=== PATIENT | female | born 1945 | race Caucasian/White ===

== ENCOUNTER → 2018-03-11 01:21 | Outpatient (CLI) | payer MEDICARE, BC, SELFPAY ==
[2018-03-11 08:35] LABS: ALT 21 U/L (12-78); AST 20 U/L (15-37); Albumin 3.6 g/dL (3.4-5.0); Alkaline Phosphatase 58 U/L (46-116); Anion Gap 10.6 mmol/L (3-11); BUN 26 mg/dL (7-18); Bilirubin, Total 0.3 mg/dL (0.2-1.0); CO2 24.4 mmol/L (21.0-32.0); Calcium 8.6 mg/dL (8.5-10.1); Chloride 102 mmol/L (98-107); Cholesterol 209 mg/dL (50-200); Estimated GFR 48.82 (mL/min/1.73m2); Glucose 111 mg/dL (70-100); HDL Cholesterol 59 mg/dL (40-60); LDL CHOLESTEROL 131 mg/dL (<100); Potassium 4.6 mmol/L (3.5-5.1); Sodium 137 mmol/L (136-145); Total Protein 6.7 g/dL (6.4-8.2); Triglyceride 117 mg/dL (30-150)
== END ==
PROVIDERS: PCP Family Medicine; Visit Provider Family Medicine
DX: I10 Essential (primary) hypertension (principal)
CPT/HCPCS: 36415; 80053; 80061; 83721

== ENCOUNTER → 2018-03-15 01:15 | Outpatient (CLI) | payer MEDICARE, BC, SELFPAY ==
--- NOTE | 2018-03-15 10:24 | DI.REPORT_ITS ---
SYMPTOMS/DIAGNOSIS: SCREENING, Z12.31 MAMMOGRAMS: Mammograms were interpreted according to the usual protocol including computer analysis with CAD system, tomosynthesis and C view imaging. Comparison is with prior mammograms. No masses or microcalcifications are seen. There is nothing to suggest malignancy. IMPRESSION: Negative mammogram. Routine screening is recommended. Category 1, breast density B. MQSA ASSESSMENT OF FINDINGS: Negative. Category 1. Patient will receive a letter notifying them of these results. BI-RADS category B. There are scattered areas of fibroglandular density.
== END ==
PROVIDERS: PCP Family Medicine; Visit Provider Family Medicine
DX: Z12.31 Encounter for screening mammogram for malignant neoplasm of breast (principal)
CPT/HCPCS: 77063; 77067

== ENCOUNTER 2018-06-22 01:24 | Outpatient (CLI) | payer MEDICARE, BC, SELFPAY ==
[2018-06-22 09:14] LABS: Glucose 100 mg/dL (70-100)
[2018-06-22 10:12] LABS: Hemoglobin A1C 5.6 % (4.5-6.2)
== END 2018-06-22 01:44 ==
PROVIDERS: PCP Family Medicine; Visit Provider Family Medicine
DX: R73.9 Hyperglycemia, unspecified (principal)
CPT/HCPCS: 36415; 82947; 83036

== ENCOUNTER 2018-08-12 15:14 | Outpatient (CLI) | payer MEDICARE, BC, SELFPAY ==
[2018-08-12 16:24] LABS: Abs Immature Grans 0.01 k/cumm (0.0-0.09); Absolute Basophil Count 0.04 k/cumm (0.0-0.2); Absolute Eosinophil Count 0.28 k/cumm (0.0-0.7); Absolute Lymphocyte Count 2.37 k/cumm (1.2-3.4); Absolute Monocyte Count 0.68 k/cumm (0.11-0.7); Absolute Neutrophil Count 3.26 k/cumm (1.2-6.7); Basophils % 0.6; Eosinophils % 4.2; HGB 12.7 g/dL (12.0-15.5); Immature Grans % 0.2; Lymphocytes % 35.7; Mean Corp. HGB Concentration 34.3 g/dL (32.0-36.0); Mean Corpuscular Volume 96.1 fL (80-95); Mean Platelet Volume 9.9 fL (8.0-11.0); Monocytes % 10.2; Neutrophils % 49.1; Platelet Count 221 x1000/uL (130-400); RBC 3.85 m/cumm (4.00-5.20); RBC Distribution Width 11.9 % (11.7-14.6); White Blood Cell Count 6.64 k/cumm (4.4-10.8)
[2018-08-12 17:30] LABS: ALT 22 U/L (12-78); AST 23 U/L (15-37); Albumin 3.9 g/dL (3.4-5.0); Alkaline Phosphatase 64 U/L (46-116); BUN 23 mg/dL (7-18); Bilirubin, Total 0.2 mg/dL (0.2-1.0); CREATININE 0.96 mg/dL (0.55-1.02); Calcium 9.2 mg/dL (8.5-10.1); Chloride 100 mmol/L (98-107); Estimated GFR 57.13 (mL/min/1.73m2); Glucose 67 mg/dL (70-100); Potassium 4.1 mmol/L (3.5-5.1); Sodium 137 mmol/L (136-145); Total Protein 7.2 g/dL (6.4-8.2)
== END 2018-08-12 15:34 ==
PROVIDERS: PCP Family Medicine; Visit Provider Nurse Practitioner Family
DX: R69 Illness, unspecified (principal); Z01.818 Encounter for other preprocedural examination
CPT/HCPCS: 36415; 80053; 85025

== ENCOUNTER 2019-04-12 01:12 | Outpatient (CLI) | payer MEDICARE, BC, SELFPAY ==
[2019-04-12 09:17] LABS: HCT 38.5 % (36.0-46.0); HGB 13.1 g/dL (12.0-15.5); Mean Corpuscular Hemoglobin 32.7 pg (27.0-33.0); Mean Platelet Volume 9.9 fL (8.0-11.0); Platelet Count 223 x1000/uL (130-400); RBC 4.01 m/cumm (4.00-5.20); RBC Distribution Width 12.2 % (11.7-14.6); White Blood Cell Count 6.47 k/cumm (4.4-10.8)
[2019-04-12 10:17] LABS: ALT 24 U/L (14-59); AST 22 U/L (15-37); Albumin 3.6 g/dL (3.4-5.0); Alkaline Phosphatase 63 U/L (46-116); Anion Gap 9.7 mmol/L (3-11); BUN 20 mg/dL (7-18); Bilirubin, Total 0.5 mg/dL (0.2-1.0); CO2 24.3 mmol/L (21.0-32.0); CREATININE 1.11 mg/dL (0.55-1.02); Calcium 8.4 mg/dL (8.5-10.1); Chloride 101 mmol/L (98-107); Estimated GFR 48.18 (mL/min/1.73m2); Glucose 156 mg/dL (70-100); Potassium 4.2 mmol/L (3.5-5.1); Sodium 135 mmol/L (136-145); Total Protein 6.9 g/dL (6.4-8.2)
[2019-04-12 15:07] LABS: Hemoglobin A1C 5.8 % (4.5-6.2)
== END 2019-04-12 01:32 ==
PROVIDERS: PCP Family Medicine; Visit Provider Family Medicine
DX: R73.9 Hyperglycemia, unspecified (principal)
CPT/HCPCS: 36415; 80053; 85027; 83036; 84443

== ENCOUNTER 2019-04-20 00:41 | Outpatient (CLI) | payer MEDICARE, BC, SELFPAY ==
--- NOTE | 2019-04-20 13:55 | MERGE_ITS ---
*[facility] [place] [facility]* *[facility]* [address] [place] [address] Date of study: 04/20/2019 Transthoracic Echocardiography M-mode, complete 2D, complete spectral Doppler, and color Doppler *STUDY CONCLUSIONS* Summary: 1. Left ventricle: The cavity size was normal. Wall thickness was increased increased in a pattern of mild to moderate LVH. Systolic function was normal. The estimated ejection fraction was 60-65%. Wall motion was normal; there were no regional wall motion abnormalities. 2. Aortic valve: There was mild to moderate stenosis. Peak velocity (S): 2.6m/sec. Mean gradient (S): 14.7mm Hg. Valve area (VTI): 1.4cm^2. Peak velocity ratio of LVOT to aortic valve: 0.35. 3. Right ventricle: The cavity size was normal. Wall thickness was normal. Systolic function was normal. *PATIENT PRESENTATION* Height: 162.6cm (64in ) S/D Pressure: 128 / 70 Weight: 99.8kg (219.5lb ) BSA: 2.17m^2 Test start time: 02:00 PM. Test stop time: 02:50 PM. PERFORMING Unknown CONSULTING Hillary Rajput ORDERING Hillary Rajput REFERRING Hillary Rajput PERFORMING [facility] SUPPORT ENGINEER RT Concepcion (R)(CT), YUNG *PROCEDURE DATA* Procedure information: The patient was identified by two identifiers. This study was interpreted by [facility]. Pertinent images and digital data are archived for permanent storage and are available for subsequent review. No prior study was available for comparison. Study status: Routine. Transthoracic echocardiography. M-mode, complete 2D, complete spectral Doppler, and color Doppler. A Transthoracic Echocardiogram was performed. Scanning was performed from the parasternal, apical, subcostal, and suprasternal notch acoustic windows. Images were obtained using an [id number] cardiac ultrasound machine. Image quality was adequate. Study completion: The patient tolerated the procedure well. History: PMH: Systolic heart murmur. Fatigue. CASTRO. R01.1. *CARDIAC ANATOMY* Left ventricle: The cavity size was normal. Wall thickness was increased increased in a pattern of mild to moderate LVH. Systolic function was normal. The estimated ejection fraction was 60-65%. Wall motion was normal; there were no regional wall motion abnormalities. Some parameters suggest diastolic dysfunction. Aortic valve: Trileaflet; normal thickness, mildly calcified leaflets. Valve mobility was restricted. Doppler: There was mild to moderate stenosis. There was no significant regurgitation. VTI ratio of LVOT to aortic valve: 0.37. Valve area (VTI): 1.4cm^2. Indexed valve area (VTI): 0.7cm^2/m^2. Peak velocity ratio of LVOT to aortic valve: 0.35. Valve area (Vmax): 1.3cm^2. Indexed valve area (Vmax): 0.6cm^2/m^2. Mean velocity ratio of LVOT to aortic valve: 0.35. Valve area (Vmean): 1.3cm^2. Indexed valve area (Vmean): 0.6cm^2/m^2. Mean gradient (S): 14.7mm Hg. Peak gradient (S): 26.2mm Hg. Aorta: Aortic root: The aortic root was normal in size. Ascending aorta: The ascending aorta was normal in size. Mitral valve: Structurally normal valve. Mobility was not restricted. Doppler: Transvalvular velocity was within the normal range. There was no evidence for stenosis. There was trivial regurgitation. Valve area by pressure half-time: 3.5cm^2. Indexed valve area by pressure half-time: 1.6cm^2/m^2. Peak gradient (D): 3.1mm Hg. Left atrium: The atrium was normal in size. Right ventricle: The cavity size was normal. Wall thickness was normal. Systolic function was normal. Pulmonic valve: The pulmonary valve appears to be grossly normal. Doppler: Transvalvular velocity was within the normal range. There was no evidence for stenosis. There was no significant regurgitation. Tricuspid valve: Structurally normal valve. Doppler: Transvalvular velocity was within the normal range. There was no evidence for stenosis. There was no significant regurgitation. Pulmonary artery: Systolic pressure could not be accurately estimated. Right atrium: The atrium was normal in size. Pericardium: There was no pericardial effusion. Systemic veins: Inferior vena cava: Well visualized. The vessel was patent and normal in size. The respirophasic diameter changes were in the normal range (greater than or equal to 50%). Baseline ECG: Normal sinus rhythm. Measurements Left ventricle Value Reference LV ID, ED, PLAX 4.2 cm 3.5 - 6.0 LV ID, ES, PLAX 2.4 cm 2.1 - 4.0 LV PW thickness, ED, PLAX 1.2 cm LV end-diastolic volume, 1-p A2C 84 ml LV ejection fraction, 1-p A2C 59 % LV end-diastolic volume, 1-p A4C 61 ml LV ejection fraction, 1-p A4C 58 % LV e', lateral 0.081 m/sec LV E/e', lateral 11 LV e', medial 0.063 m/sec LV E/e', medial 14 LV e', average 0.072 m/sec LV E/e', average 12 Ventricular septum Value Reference IVS thickness, ED, PLAX 1.5 cm LVOT Value Reference LVOT ID, S 2.2 cm LVOT ID, A-P 2.2 cm LVOT area 3.8 cm^2 LVOT peak velocity, S 0.9 m/sec LVOT mean velocity, S 0.64 m/sec LVOT VTI, S 19.0 cm LVOT peak gradient, S 3.3 mm Hg LVOT mean gradient, S 1.9 mm Hg Stroke volume (SV), LVOT DP 60 ml Stroke index (SV/bsa), LVOT DP 28 ml/m^2 Aortic valve Value Reference Aortic valve peak velocity, S 2.6 m/sec Aortic valve mean velocity, S 1.8 m/sec Aortic valve VTI, S 51.0 cm Aortic mean gradient, S 14.7 mm Hg Aortic peak gradient, S 26.2 mm Hg VTI ratio, LVOT/AV 0.37 Aortic valve area, VTI 1.4 cm^2 Velocity ratio, peak, LVOT/AV 0.35 Aortic valve area, peak velocity 1.3 cm^2 Velocity ratio, mean, LVOT/AV 0.35 Aortic valve area, mean velocity 1.3 cm^2 Aortic valve area/bsa, mean velocity 0.6 cm^2/m^2 Aorta Value Reference Aortic root ID, ED 2.8 cm Ascending aorta ID, A-P, S 2.9 cm Left atrium Value Reference LA ID, A-P, ES 3.6 cm LA ID/bsa, A-P 1.7 cm/m^2 <=2.2 LA volume/bsa, ES, 1-p A4C 15 ml/m^2 LA volume, ES, 2-p 38 ml LA volume/bsa, ES, 2-p 18 ml/m^2 LA/aortic root ratio 1.28 Mitral valve Value Reference Mitral E-wave peak velocity 0.88 m/sec Mitral A-wave peak velocity 1.2 m/sec Mitral deceleration time 216 ms 150 - 230 Mitral pressure half-time 63 ms Mitral peak gradient, D 3.1 mm Hg Mitral E/A ratio, peak 0.73 Mitral valve area, PHT, DP 3.5 cm^2 Tricuspid valve Value Reference Tricuspid regurg peak velocity 2.5 m/sec Tricuspid peak RV-RA gradient 24.5 mm Hg Right atrium Value Reference RA area, ES, A4C 9.6 cm^2 8.3 - 19.5 Legend: (L) and (H) noel values outside specified reference range. I have personally reviewed the images and have reviewed and edited the reported findings. Electronically signed by Sumit Pizarro 04/20/2019 15:32
== END 2019-04-20 01:01 ==
PROVIDERS: PCP Family Medicine; Visit Provider Family Medicine
DX: R01.1 Cardiac murmur, unspecified (principal); R06.09 Other forms of dyspnea; I35.0 Nonrheumatic aortic (valve) stenosis; I10 Essential (primary) hypertension
CPT/HCPCS: 93306

== ENCOUNTER 2019-04-28 07:00 | Outpatient (CLI) | payer MEDICARE, BC, SELFPAY ==
[2019-04-28 13:43] LABS: ESR 21 mm/hr (0-30)
[2019-04-28 13:57] LABS: Mono Screening Negative (Negative)
[2019-04-29 11:10] LABS: Lyme Ab w Rflx to Lyme Confirm Negative
== END 2019-04-28 07:20 ==
PROVIDERS: PCP Family Medicine; Visit Provider Family Medicine
DX: M25.50 Pain in unspecified joint (principal); R53.83 Other fatigue
CPT/HCPCS: 36415; 85652; 86308; 86618

== ENCOUNTER 2019-08-15 08:33 | Outpatient (CLI) | payer MEDICARE, BC, SELFPAY | END 2019-08-15 08:53 | PROVIDERS: PCP Family Medicine; Visit Provider Internal Medicine Cardiovascular Disease | DX: I35.0 Nonrheumatic aortic (valve) stenosis (principal); E78.00 Pure hypercholesterolemia, unspecified; I10 Essential (primary) hypertension | CPT/HCPCS: 99204; 99215; 93005; 93010 ==

== ENCOUNTER 2020-09-27 02:49 | Outpatient (CLI) | payer MEDICARE, BC, SELFPAY ==
[2020-09-27 08:58] LABS: ALT 24 U/L (14-59); AST 19 U/L (15-37); Albumin 3.6 g/dL (3.4-5.0); Alkaline Phosphatase 66 U/L (46-116); Anion Gap 7.1 mmol/L (3-11); BUN 20 mg/dL (7-18); Bilirubin, Total 0.4 mg/dL (0.2-1.0); CO2 28.9 mmol/L (21.0-32.0); CREATININE 0.9 mg/dL (0.55-1.02); Calcium 8.7 mg/dL (8.5-10.1); Calculated LDL 130 mg/dL (<100); Chloride 102 mmol/L (98-107); Cholesterol 208 mg/dL (<200); Glucose 117 mg/dL (74-106); HDL Cholesterol 50 mg/dL (40-60); Magnesium 1.9 mg/dL (1.8-2.4); Potassium 4.3 mmol/L (3.5-5.1); Sodium 138 mmol/L (136-145); Total Protein 7.2 g/dL (6.4-8.2); Triglyceride 142 mg/dL (<150)
== END 2020-09-27 02:50 | disposition home or self-care (01) ==
LOC: LBO 02:50
PROVIDERS: PCP Family Medicine; Visit Provider Family Medicine
DX: I10 Essential (primary) hypertension (principal); E83.42 Hypomagnesemia
CPT/HCPCS: 36415; 80053; 80061; 83735

== ENCOUNTER 2021-01-18 04:05 | Outpatient (CLI) | payer MEDICARE, BC, SELFPAY ==
[2021-01-18 11:01] LABS: Anion Gap 7.8 mmol/L (3-11); BUN 19 mg/dL (7-18); CO2 28.2 mmol/L (21.0-32.0); CREATININE 0.9 mg/dL (0.55-1.02); Calcium 8.8 mg/dL (8.5-10.1); Calculated LDL 82 mg/dL (<100); Chloride 102 mmol/L (98-107); Cholesterol 156 mg/dL (<200); Glucose 123 mg/dL (74-106); HDL Cholesterol 56 mg/dL (40-60); Potassium 4.3 mmol/L (3.5-5.1); Sodium 138 mmol/L (136-145); Triglyceride 93 mg/dL (<150)
== END 2021-01-18 04:06 | disposition home or self-care (01) ==
LOC: LBO 04:05
PROVIDERS: PCP Family Medicine; Visit Provider Family Medicine
DX: E78.00 Pure hypercholesterolemia, unspecified (principal)
CPT/HCPCS: 36415; 80048; 80061

== ENCOUNTER 2021-03-21 03:24 | Outpatient (CLI) | payer MEDICARE, BC, SELFPAY ==
--- NOTE | 2021-03-21 14:21 | DI.US_ITS ---
APPROVED REPORT EXAM: Comprehensive 2D, Doppler, and color-flow Echocardiogram Patient Location: Out-Patient Senior Biostatistician/Group Leader: Nicolette Lynch RDCS (AE) Indications: Aortic Stenosis Other Information Study Quality: Fair. Technically limited study due to body habitus. Conclusion Mild concentric left ventricular hypertrophy. Estimated ejection fraction is 60%. There are no segm ental wall motion abnormalities Normal right ventricular size and systolic function Both atria are normal in size Sclerotic trileaflet aortic valve with mild stenosis. Calculated aortic valve area is 1.34 cm??. No aortic regurgitation Mild mitral annular calcification, mild mitral regurgitation Trace tricuspid regurgitation with normal estimated right ventricular systolic pressure Wall motion Left Ventricle The left ventricle is normal size. The left ventricular systolic function is normal. The left ventric ular ejection fraction is within the normal range. Mild concentric left ventricular hypertrophy. Ther e is normal LV segmental wall motion. There is no ventricular septal defect visualized. LVEF is 58%. Right Ventricle Right ventricle is grossly normal in size. Right ventricular systolic function is grossly normal. The RVSP is 21.7 mmHg. Atria The left atrium size is normal. The right atrium size is normal. The interatrial septum is intact wit h no evidence for an atrial septal defect. Aortic Valve Aortic valve is calcified. Mild aortic stenosis. Peak aortic valve gradient is 26.1mmHg. Highest mean aortic valve gradient is 15.4mmHg. Calculated TARA by the continuity equation is 1.34cm2. No aortic r egurgitation is present. Mitral Valve Mild mitral annular calcification. No evidence of mitral valve stenosis. Mild mitral regurgitation. Tricuspid Valve The tricuspid valve is normal in structure. There is no tricuspid valve stenosis. Trace tricuspid reg urgitation. Pulmonic Valve The pulmonary valve is normal in structure. There is no pulmonic valvular stenosis. There is no pulmo alejandro valvular regurgitation. Great Vessels The aortic root is normal in size. Ascending aorta is not well visualized. Aortic arch is not well vi sualized. IVC is normal in size and collapses >50% with inspiration. Pericardium There is no pericardial effusion. 2D Dimensions IVSD d PLAX 1.15 cm F: 0.6-1.0 LV Vol A2C d MOD 86.2 mL LVPW d PLAX 1.15 cm F: 0.6 - 1.0 LV Vol A4C d MOD 84.6 mL LVID d PLAX 4.46 cm F: 3.8 - 5.2 LA vol/ BSA A2C s A-L 21.9 mL/m2 LVDs 3.10 cm F: 2.2 - 3.5 LA vol/ BSA A4C s A-L 20.7 mL/m2 Ao Root d 2.99 cm F: 2.7 - 3.3 LA Vol/ BSA Biplane s A-L 21.5 mL/m2 RA Area A4C 10.60 cm2 LA Area A4C s MOD 16.35 cm2 RA Vol/ BSA A4C s A-L 10.9 mL/m2 LA Area A2C s MOD 16.63 cm2 LV EF Teichholz 56.8 % LV EF A4C MOD 56.9 % LVEF (Louie's) 59.30 % F: 54 - 74 LV EF A2C MOD 59.9 % LV Volume 64.63 mL F: 46 - 106 LV EF Biplane MOD 59.3 % LV Volume Index 30.92 mL/m2 F: 29 - 61 SV 51.88 mL LV Vol Biplane MOD 87.5 mL SV Index 24.77 mL/m2 FS 29.55 % M-Mode TAPSE 3.05 cm (M/F) >1.7 LV Diastology MV E' medial 0.106 (>0.07 m/s) E/A Ratio 1.0 LV E/e MED 10.70 (<14) MV E Vmax 1.14 (0.4-1.3 m/s) MV E' lateral 0.104 (>0.1 m/s) MV A Vmax 1.15 (0.4-1.3 m/s) LV E/e LAT 10.95 (<14) MV E/A Ratio 0.97 MV E/E' medial 10.71 MV E/E' lateral 10.96 Aortic Valve LVOT Area 3.49 cm2 AoV Area Vmax 1.34 cm2 LVOT Vmax 0.98 m/s AoV Area/ BSA (Vmax) 0.64 cm2/m2 LVOT Mean Nazario. 0.76 m/s TARA Mean Nazario. 1.43 cm2 LVOT Peak Grad 3.9 mmHg TARA Mean Nazario. Index 0.68 cm2/m2 LVOT Mean Grad 2.5 mmHg LVOT VTI 0.222 m LVOT Diam s 2.10 cm AoV Vmax 2.55 m/s Velocity Ratio 0.38 AoV Mean Nazario. 1.87 m/s AoV Peak Grad 26.1 mmHg LVOT SV 77.44 mL AoV Mean Grad 15.4 mmHg AoV VTI 0.569 m AoV Area VTI 1.36 cm2 AoV Area/ BSA (VTI) 0.65 cm/m2 Mitral Valve MV DT 215 (160-240 msec) MR Vmax 6.03 m/s MV PHT 62 msec MR VTI 2.064 m MV Area PHT 3.52 cm2 MR Peak Grad 145.4 mmHg MV VTI 0.427 m MR Mean Grad 103.2 mmHg MV VTI Annulus 0.434 m MV Area VTI 1.85 (4.0-6.0 cm2) Pulmonary Valve PV Vmax 1.38 (0.5-1.5 m/s) RVOT Peak Gr. 4.33 mmHg PV Peak Grad 7.6 mmHg RVOT Mean Gr. 2.30 mmHg PV Mean Grad 4.7 mmHg RVOT VTI 0.198 m PV VTI 0.319 m RVOT Vmax 1.04 m/s Tricuspid Valve TR Peak Grad 18.7 mmHg TR Vmax 2.16 m/s RA Pressure 3.00 mmHg RVSP (TR) 21.7 mmHg
== END 2021-03-21 03:44 ==
PROVIDERS: PCP Family Medicine; Visit Provider Family Medicine
DX: I35.0 Nonrheumatic aortic (valve) stenosis (principal)
CPT/HCPCS: 93306

== ENCOUNTER → 2021-03-28 09:57 | Outpatient (BNVA) | payer MEDICARE, BC, SELFPAY | PROVIDERS: PCP Family Medicine; Referring Provider Family Medicine; Visit Provider Nurse Practitioner Adult Health | DX: G56.02 Carpal tunnel syndrome, left upper limb (principal) | CPT/HCPCS: 95908; 99203; 99215 ==

== ENCOUNTER → 2021-05-24 08:19 | Outpatient (BNVA) | payer MEDICARE, BC, SELFPAY | PROVIDERS: PCP Family Medicine; Referring Provider Family Medicine; Visit Provider Student in an Organized Health Care Education/Training Program | DX: G56.02 Carpal tunnel syndrome, left upper limb (principal) | CPT/HCPCS: 99213 ==

== ENCOUNTER → 2021-06-27 13:57 | Outpatient (BNVA) | payer MEDICARE, BC, SELFPAY | PROVIDERS: PCP Family Medicine; Referring Provider Family Medicine | DX: Z01.818 Encounter for other preprocedural examination (principal); G56.02 Carpal tunnel syndrome, left upper limb ==

== ENCOUNTER 2021-07-01 01:15 | Outpatient (CLI) | payer MEDICARE, BC, SELFPAY ==
--- NOTE | 2021-07-01 06:45 | DI.RAD_ITS ---
Exam(s) XR CHEST 2V PA LATERAL EXAM: XR CHEST 2V PA LATERAL CLINICAL HISTORY: exertional dyspnea,r06.00 TECHNIQUE: 2D digital imaging was performed. COMPARISON: CT HEAD WITHOUT CONTRAST from 08/18/2008 FINDINGS: MEDIASTINUM: Normal. HEART: Normal. PULMONARY VASCULATURE: Normal. LUNGS: Partially calcified nodule anterior left upper lobe, consistent with a granuloma. Lungs other dixon clear. PLEURAL SPACE: No pleural effusion or pneumothorax. BONE:Unremarkable for age. IMPRESSION: No acute abnormality. DATA REPOSITORY: RADIATION DOSE DELIVERED:
== END 2021-07-01 01:35 ==
PROVIDERS: PCP Family Medicine; Visit Provider Family Medicine
DX: R06.00 Dyspnea, unspecified (principal)
CPT/HCPCS: 71046

== ENCOUNTER 2021-07-08 02:48 | Outpatient (CLI) | payer MEDICARE, BC, SELFPAY ==
[2021-07-08 11:03] LABS: Source Nasal/Nares
[2021-07-08 14:01] LABS: COVID-19 PCR Negative (Negative)
== END 2021-07-08 02:49 | disposition home or self-care (01) ==
PROVIDERS: PCP Family Medicine; Visit Provider Student in an Organized Health Care Education/Training Program
DX: Z20.822 Contact with and (suspected) exposure to COVID-19 (principal)
CPT/HCPCS: 87635

== ENCOUNTER 2021-07-09 10:29 | Day surgery (SDC) | payer MEDICARE, BC, SELFPAY ==
[2021-07-09 11:02] VITALS: BP 159/76; PULSE 76; RESP 16; TEMP 36.7; O2SAT 96
--- NOTE | 2021-07-09 11:15 | ANES.PREOP_ITS ---
General Info Date of Service Date Performed: 07/09/21 Height: 5 ft 3.5 in Weight: 107.2 kg Body Mass Index (BMI): 41.2 Surgical Procedure: Operation Date: 07/09/21 13:40 Proposed Procedures Side Surgeon p Wrist ECTR Left Ashish Crenshaw MD Meds Allergies and Home Medications Allergies Allergy/AdvReac Type Severity Reaction Status Date / Time No Known Allergies Allergy Unverified 07/09/21 10:48 Home Medication Medication Instructions Recorded aspirin 1 tab PO DAILY 11/18/12 calcium carbonate-vitamin D3 1 tab PO DAILY 11/18/12 [Caltrate with Vitamin D3] acetaminophen 1,000 mg PO BID PRN 12/04/17 ibuprofen 600 mg PO Q8H PRN tab-cap 02/17/18 nystatin (bulk) 1 ea MISCELLANEOUS DAILY PRN #1 02/25/18 bottle hydrochlorothiazide 25 mg tablet 25 mg PO DAILY #90 tab 06/04/20 lisinopril 10 mg tablet 10 mg PO DAILY #90 tab-cap 07/24/20 atorvastatin 10 mg tablet 10 mg PO DAILY #90 tab 01/23/21 sertraline 50 mg tablet 50 mg PO DAILY #90 tab 01/23/21 loratadine 10 mg tablet 10 mg PO DAILY #90 tab 02/04/21 famotidine 40 mg tablet 40 mg PO DAILY #30 tab 04/03/21 Current Visit Medications: Current Medications Generic Name Dose Route Start Last Admin Trade Name Freq PRN Reason Stop Dose Admin Ringer's Solution 1,000 mls @ 80 mls/hr 07/09/21 06:00 IV 08/07/21 23:59 INFUSION ARISTIDES Cefazolin Sodium/Dextrose 2 gm in 50 mls @ 100 mls/hr 07/09/21 06:00 Ancef Duplex IVPB 08/07/21 23:59 PREOP ARISTIDES IV Miscellaneous Supplies 1 each 07/09/21 06:00 Iv Access IV 08/07/21 23:59 DIRECTED ARISTIDES Sodium Chloride 0 ml 07/09/21 06:00 Normal Saline Flush 10 Ml Syr IV 08/07/21 23:59 PRN PRN Sodium Chloride 0 ml 07/09/21 06:00 Normal Saline 10 Ml Vial IJ 08/07/21 23:59 DIRECTED PRN Sterile Water 0 ml 07/09/21 06:00 Water,Injection,Sterile 10 Ml Vial IJ 08/07/21 23:59 DIRECTED PRN PFS Active Problems Active Problems: Problem Status Onset Code Exertional dyspnea R06.00 Left carpal tunnel syndrome G56.02 Hypercholesteremia E78.00 Aortic stenosis I35.0 Hypocalcemia 07/09/08 E83.51 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 Postmenopausal bleeding 08/29/15 N95.0 Depression 02/11/17 F32.9 Increased body mass index R63.8 History of tobacco use Z87.891 Gastroesophageal reflux disease K21.9 Essential hypertension 07/19/13 I10 Diverticulosis of intestine without bleeding 02/08/18 K57.90 Medical History Active Problem List Exertional dyspnea (Acute) Left carpal tunnel syndrome (Acute) Hypercholesteremia (Acute) Aortic stenosis (Chronic) Hypocalcemia (Acute 07/09/08) Varicose veins of lower extremity (Acute) Postmenopausal bleeding (Acute 08/29/15) Depression (Acute 02/11/17) Increased body mass index (Acute) History of tobacco use (Acute) Gastroesophageal reflux disease (Acute) Essential hypertension (Acute 07/19/13) Diverticulosis of intestine without bleeding (Acute 02/08/18) Medical History Depression Essential hypertension GERD (gastroesophageal reflux disease) Hypocalcemia Increased body mass index Postmenopausal bleeding Tobacco abuse Varicose vein of leg Surgical History Surgical History Colonoscopy - IV Sedation 2008- normal Colonoscopy - MAC (02/02/18) Status post dilation and curettage (09/20/15) Status post endometrial ablation (09/20/15) Status post hysteroscopic polypectomy (09/20/15) Status post lumbar surgery cyst removed 2019 Tobacco Smoking/Tobacco Use Status: Former Tobacco Use Tobacco: How many years used: 20 Passive smoking exposure: Yes Alcohol Alcohol Intake: current Alcohol intake frequency: holidays/special occasions only Substance Use Substance use: Never Substance use type: does not use Prental History History 3 Para Hx # Term Pregnancies Multiple births 1 Hx # Pregnancies Ectopic pregnancies AB induced Hx Number of Living Children 3 AB spontaneous 1 Vital Signs and Lab Results Vital Signs Most Recent Vital Signs in EMR: Most Recent Vital Signs Temp Pulse Resp BP Pulse Ox 36.7 C 76 16 159/76 H 96 07/09/21 11:02 07/09/21 11:02 07/09/21 11:02 07/09/21 11:02 07/09/21 11:02 Lab Results Blood Type / Crossmatch: No Data to Display Complete Blood Count: No Data to Display Complete Metabolic Panel: No Data to Display Liver Function Panel: No Data to Display Coagulation Panel: No Data to Display Cardiac Panel: No Data to Display Arterial Blood Gas: No Data to Display Venous Blood Gas: No Data to Display Pancreas Panel: No Data to Display Thyroid Panel: No Data to Display Infectious Disease: Coronavirus (COVID-19)(PCR) Negative (Negative) 07/08/21 09:52 07/08/21 Coronavirus 2019 Source Nasal/Nares 07/08/21 09:52 07/08/21 Blood Cultures: No Data to Display Toxicology Panel: No Data to Display Anesthesia Assessment and Plan Anesthesia History Personal History: PONV Family History: No Family History of Anesthesia Complications Exercise Tolerance Exercise Tolerance: Metabolic Equivalents>4 Pertinent Negatives Pertinent Negatives: No Symptoms of GERD, No Major Cardiovascular Symptoms or C omplaints, No Major Pulmonary Symptoms or Complaints and No History of CVA/TIA Cardiac & Pulmonary Exam Cardiac Exam: Normal S1/S2 Heart Sounds Pulmonary Exam: Clear Bilateral Breath Sounds Implantable Cardiac Device Does patient have a Pacemaker or an ICD?: No Airway Exam Known Difficult Airway: No Mallampati Class: 2 Mouth Opening: Normal (> 3cm) Thyromental Distance: Greater than 3 cm Neck Range of Motion: Full ROM Neck Circumference: Normal Teeth Condition: Generalized Poor Dentition and Loose or Chipped (Front incisors) ASA Classification ASA Score: ASA 3 Emergency Case?: No NPO Status NPO Status: NPO Clears >2 hours, Solids >8 hours Anesthesia Plan Resuscitation Status: Full Code Anesthesia Technique: General Anesthesia Airway Planned: Natural Airway Monitors Used: Standard Monitors
[2021-07-09] MEDS: Lactated Ringers 1,000 ML 80 ML IV (11:20)
[2021-07-09 11:39] VITALS: BMI 41.2
[2021-07-09] MEDS: ceFAZolin 2 GM/50 ML BAG IVPB (12:25)
[2021-07-09] MEDS: Sodium Bicarbonate 50 MEQ/50 ML VIAL (12:31)
--- NOTE | 2021-07-09 12:36 | W.PM.DSUDISC ---
Discharge Plan Disposition Patient Disposition: HOME Condition: Good Discharge Details Reason For Visit: L ECTR Attending Provider: Ashish Crenshaw Primary Care Provider: Hillary Rajput Home Meds and New Rx's Prescriptions: New acetaminophen 500 mg tablet 1,000 mg PO TID Qty: 90 RF: 0 ibuprofen 600 mg tablet 600 mg PO TID PRN (Reason: pain) Qty: 90 RF: 0 Continued loratadine [Claritin] 10 mg tablet 10 mg PO DAILY Qty: 90 RF: 3 famotidine 40 mg tablet 40 mg PO DAILY Qty: 30 RF: 3 aspirin 325 MG tablet 1 tab PO DAILY RF: 0 calcium carbonate-vitamin D3 [Caltrate with Vitamin D3] 1 EACH tablet 1 tab PO DAILY RF: 0 nystatin (bulk) 1 EACH powder 1 ea Miscellaneous DAILY PRNQty: 1 RF: 0 hydrochlorothiazide 25 mg tablet 25 mg PO DAILY Qty: 90 RF: 4 lisinopril 10 mg tablet 10 mg PO DAILY Qty: 90 RF: 4 atorvastatin 10 mg tablet 10 mg PO DAILY Qty: 90 RF: 3 sertraline 50 mg tablet 50 mg PO DAILY Qty: 90 RF: 3 Discontinued acetaminophen 500 MG tablet 1,000 mg PO BID PRNRF: 0 ibuprofen 200 MG tablet 600 mg PO Q8H PRN RF: 0 Discharge Instructions Stand Alone Forms: Flower Lozoya Tunnel Release Referrals: Ashish Crenshaw MD [ [facility] STAFF PHYSICIAN] - Activity:: Activity as Tolerated Remove Dressings/Wound Care:: 48 hours Shower/Bathe:: 48 hours Diet:: As Tolerated Discharge Orders Discharge Orders: Discharge Order (Routine); Ordered 07/09/21 Ordered By: Ozzie Escobar DS: Diagnosis Discharge Diagnosis (1) Left carpal tunnel syndrome: Status: Acute
[2021-07-09 12:43] VITALS: BP 117/57; PULSE 77; RESP 16; TEMP 36.3; O2SAT 100
[2021-07-09 13:15] VITALS: BP 118/52; PULSE 75; RESP 16; TEMP 36.4; O2SAT 96
--- NOTE | 2021-07-09 13:20 | W.ANESPOSTOP ---
Postoperative Evaluation Date, Time and Location Date Performed: 07/09/21 Time Performed: 13:20 Patient Location: Day Surgery Unit Vital Signs Most Recent Imported Vital Signs: Most Recent Vital Signs Temp Pulse Resp BP Pulse Ox 36.4 C L 75 16 118/52 L 96 07/09/21 13:15 07/09/21 13:15 07/09/21 13:15 07/09/21 13:15 07/09/21 13:15 Pain Score Most Recent Pain Score: Most Recent Pain Score Pain Level 0 07/09/21 13:15 Assessment Mental Status: Awake (Alert & Oriented to Patient Baseline) Airway and Respiratory Function: Patent airway with normal (patient baseline) respiratory exam Cardiovascular Function: Hemodynamically Stable Hydration Status: Adequately Hydrated Nausea & Vomiting: No Nausea or Vomiting Pain: Pt. Denies Any Pain Peripheral Nerve Block: Patient did not receive a nerve block
--- NOTE | 2021-07-09 19:27 | W.PM.OP ---
Date of service: 07/09/21 Time of Service: 13:27 Operative Note Operative Note DATE OF PROCEDURE: 07/09/21 PRE-OP DIAGNOSIS: Left Carpal Tunnel Syndrome POST-OP DIAGNOSIS: same PROCEDURE: Left Endoscopic Carpal Tunnel Release SURGEON: Ashish Crenshaw ANESTHESIA TYPE: General:No Airway Refer to Anesthesia Record ESTIMATED BLOOD LOSS: 0 PATHOLOGY: none sent TOURNIQUET TIME: 4 COMPLICATIONS: None Patient was transported to: same day Patient's condition: stable Indications: I have seen Corine in clinic for symptoms of carpal tunnel syndrome. The numbness, tingling, and pain limited function. Clinical exam findings with nerve conduction tests confirmed the diagnosis of carpal tunnel syndrome. Nonoperative measures such as bracing, time, activity modifications had been tried but disability and pain persisted. I discussed carpal tunnel release with the patient. I reviewed the risks of the procedure to include, but not limited to, bleeding, infection, pain, stiffness, incomplete release, damage to nerves or vessels, persistent numbness, recurrence. Despite these risks, the patient elected to proceed. Findings: There was tightened carpal tunnel. This was dilated and released successfully with the endoscopic with increased space within the tunnel. The antebrachial fascia was released proximally freeing the median nerve at the wrist. Procedure Description: Corine was greeted in the preoperative holding area where the correct side was identified and marked. The consent was reviewed with the patient and signed. The history and physical was updated. All questions were answered. She was taken back to the operating room. The patient was placed into the supine position on the operating room table with the left arm on an arm board. A nonsterile tourniquet was placed high onto the arm. All bony prominences were well padded. Prophylactic antibiotics in the form of Cefazolin were administered. The left arm was then prepped with Chloraprep and draped in a standard fashion with stockinette and extremity drape. A timeout to confirm correct identity, side and site, procedure, allergies, anesthesia, and medical concerns was performed. The surgical site was marked in the volar wrist creases in line with the radial border of the fourth ray. This area was anesthetized with approximately 6cc of 1% Lidocaine. The limb was then exsanguinated with an Esmarch. The skin was incised with a 15 blade, approximately 1cm. The skin only was cut and the deeper tissue was dissected bluntly with a tenotomy scissor, avoiding passing nerve and venous structures. The fascia was penetrated and opened bluntly. A two-prong skin hook was placed under this proximal fascial edge. A series of hamate finders were used to identify and dilate the carpal tunnel. Synovial elevator was used to free synovial attachments to the underside of the transverse carpal ligament. My thumb was kept in the palm to noel the distal extent of the carpal tunnel and correctly position the hand. The Microaire endoscope was inserted without difficulty and without resistance. Excellent visualization showed horizontally running fibers of the transverse carpal ligament (TCL). The distal extent of the TCL was visualized and the end of the scope palpated with the thumb. The blade was elevated and withdrawn from distal to proximal. The TCL was split into two flaps. The endoscope was reinserted to confirm complete release and any remnant ligament was incised. The scope was withdrawn and the proximal aspect of the carpal tunnel was grossly inspected and appeared release with the median nerve visible. The antebrachial fascia at the level of the wrist was then freed from the overlying skin and then the underlying median nerve with blunt dissection. This was transected longitudinally for about 3cm proximal to the wrist incision. The wound was then irrigated with easy flow of irrigant distally and proximally. The incision was closed with a single 4-0 Nylon suture. The wound was dressed with Xeroform, Gauze, Kerlix and Rufino. The tourniquet was deflated with the initial dressing and held with some pressure. Blood flow returned easily to all digits with capillary refill less than 2 seconds. The patient tolerated the procedure well and was returned to the Same Day Surgery area in a stable condition suffering no known complication.
== END 2021-07-09 13:39 | disposition home or self-care (01) ==
PROVIDERS: PCP Family Medicine; Visit Provider Student in an Organized Health Care Education/Training Program
PROC: 01N54ZZ Release Median Nerve, Percutaneous Endoscopic Approach (ICD-10-PCS; CPT 29848; principal; 2021-07-09 13:30)
DX: G56.02 Carpal tunnel syndrome, left upper limb (principal); I10 Essential (primary) hypertension; K21.9 Gastro-esophageal reflux disease without esophagitis
CPT/HCPCS: 29848; J0690

== ENCOUNTER → 2021-07-18 09:58 | Outpatient (BNVA) | payer MEDICARE, BC, SELFPAY | PROVIDERS: PCP Family Medicine; Referring Provider Family Medicine; Visit Provider Student in an Organized Health Care Education/Training Program | DX: Z47.89 Encounter for other orthopedic aftercare (principal) ==

== ENCOUNTER 2021-07-19 01:08 | Outpatient (CLI) | payer MEDICARE, BC, SELFPAY ==
[2021-07-19 08:29] LABS: Abs Immature Grans 0.02 10^3/uL (0.0-0.06); Absolute Basophil Count 0.06 10^3/uL (0.0-0.2); Absolute Lymphocyte Count 2.28 10^3/uL (1.2-3.4); Absolute Monocyte Count 0.79 10^3/uL (0.1-0.8); Absolute Neutrophil Count 3.47 10^3/uL (1.2-6.7); Basophils % 0.9; Eosinophils % 5.7; HCT 38.2 % (36.0-46.0); HGB 12.7 g/dL (11.2-15.7); Immature Grans % 0.3; Lymphocytes % 32.5; MCH 31.8 pg (27.0-33.0); MCHC 33.2 % (32.0-36.0); MCV 95.7 fL (80-95); Monocytes % 11.3; Neutrophils % 49.3; Nucleated RBC 0 %; Platelet Count 237 10^3/uL (130-400); RBC 3.99 10^6/uL (3.93-5.22); RDW 11.9 % (11.7-14.6); RDW-SD 41.9 fL; WBC 7.02 10^3/uL (4.4-10.8)
[2021-07-19 10:27] LABS: ALT 25 U/L (14-59); AST 23 U/L (15-37); Albumin 3.7 g/dL (3.4-5.0); Alkaline Phosphatase 59 U/L (46-116); Anion Gap 6.3 mmol/L (3-11); BUN 15 mg/dL (7-18); Bilirubin, Total 0.6 mg/dL (0.2-1.0); CO2 30.7 mmol/L (21.0-32.0); CREATININE 0.8 mg/dL (0.55-1.02); Calcium 8.5 mg/dL (8.5-10.1); Chloride 99 mmol/L (98-107); Ferritin 507 ng/mL (8-252); Glucose 102 mg/dL (74-106); Potassium 4.2 mmol/L (3.5-5.1); Sodium 136 mmol/L (136-145); Total Protein 7.1 g/dL (6.4-8.2)
[2021-07-19 10:37] LABS: Iron 137 ug/dL (50-170); Total Iron Binding Capacity 220 ug/dL (250-450); Transferrin Sat 62 % (15-50)
== END 2021-07-19 01:09 | disposition home or self-care (01) ==
LOC: LBO 01:08
PROVIDERS: PCP Family Medicine; Visit Provider Family Medicine
DX: R06.00 Dyspnea, unspecified (principal)
CPT/HCPCS: 36415; 80053; 82728; 83540; 83550; 85025

== ENCOUNTER → 2021-08-26 09:44 | Outpatient (BNVA) | payer MEDICARE, BC, SELFPAY | PROVIDERS: PCP Family Medicine; Referring Provider Family Medicine; Visit Provider Internal Medicine Cardiovascular Disease | DX: I35.0 Nonrheumatic aortic (valve) stenosis (principal); E78.00 Pure hypercholesterolemia, unspecified; I10 Essential (primary) hypertension; R06.00 Dyspnea, unspecified | CPT/HCPCS: 99214; 99213 ==

== ENCOUNTER 2022-04-29 01:27 | Outpatient (CLI) | payer MEDICARE, BC, SELFPAY ==
[2022-04-29 08:53] LABS: ALT 23 U/L (14-59); BUN 18 mg/dL (7-18); Calculated LDL 68 mg/dL (<100); Chloride 101 mmol/L (98-107); Cholesterol 149 mg/dL (<200); Estimated GFR 58.39 (mL/min/1.73m2); Glucose 114 mg/dL (74-106); HDL Cholesterol 57 mg/dL (40-60); Potassium 4.2 mmol/L (3.5-5.1); Sodium 137 mmol/L (136-145); Triglyceride 122 mg/dL (<150)
== END 2022-04-29 01:28 | disposition home or self-care (01) ==
LOC: LBO 01:28
PROVIDERS: PCP Family Medicine; Visit Provider Family Medicine
DX: E78.5 Hyperlipidemia, unspecified (principal); I10 Essential (primary) hypertension
CPT/HCPCS: 36415; 80048; 80061; 84460

== ENCOUNTER → 2022-07-28 14:18 | Outpatient (CLI) | payer MEDICARE, BC, SELFPAY ==
--- NOTE | 2022-07-28 14:08 | DI.RAD_ITS ---
Exam(s) XR CHEST 2V PA LATERAL EXAM: XR CHEST 2V PA LATERAL CLINICAL HISTORY: CONTINUED COUGH, WHEEZING AND CRACKLES, R05.9 TECHNIQUE: 2D digital imaging was performed. COMPARISON: CR XR CHEST 2V PA LATERAL from 07/01/2021 FINDINGS: HEART: Normal size. Aorta: Not dilated. PULMONARY VASCULATURE: Normal. LUNGS: Calcified granuloma left upper lobe, otherwise clear. PLEURAL SPACE: No pleural effusion or pneumothorax. BONE:Unremarkable for age. IMPRESSION: No acute abnormality. DATA REPOSITORY: RADIATION DOSE DELIVERED:
== END ==
PROVIDERS: PCP Family Medicine; Visit Provider Nurse Practitioner Family
DX: R05.3 Chronic cough; R06.2 Wheezing; R91.8 Other nonspecific abnormal finding of lung field
CPT/HCPCS: 71046

== ENCOUNTER 2022-10-22 11:48 | Outpatient (CLI) | payer MEDICARE, BC, SELFPAY ==
--- NOTE | 2022-10-22 10:30 | DI.RAD_ITS ---
Exam(s) XR HAND RT COMPLETE EXAM: XR HAND RT COMPLETE CLINICAL HISTORY: right thumb MCP pain, swelling, M79.644. TECHNIQUE: 2D digital imaging was performed of the right hand. Three images were obtained. AP, late ral and oblique views were obtained. COMPARISON: No exams were available for comparison FINDINGS: BONES: No acute fracture is present. No bony destructive lesion is seen. JOINTS: No dislocation present. Marked degenerative changes are seen in the hand with joint space kash rowing and bony hypertrophy. The findings are most marked at the distal interphalangeal joints of th e fingers. This includes the interphalangeal joint of the thumb. SOFT TISSUE: Normal. IMPRESSION: Osteoarthritis of the hand. DATA REPOSITORY: RADIATION DOSE DELIVERED:
== END 2022-10-22 12:08 ==
LOC: DI 11:48
PROVIDERS: PCP Family Medicine; Visit Provider Internal Medicine
DX: M79.644 Pain in right finger(s) (principal); M19.041 Primary osteoarthritis, right hand; M25.541 Pain in joints of right hand
CPT/HCPCS: 73130

== ENCOUNTER 2023-01-06 04:22 | Outpatient (CLI) | payer MEDICARE, BC, SELFPAY ==
[2023-01-06] MEDS: Inhaler, Assist Device 1 EACH MC (08:54)
[2023-01-06] MEDS: Albuterol HFA 18 GM 200 PUFF INH IH (08:54)
--- NOTE | 2023-01-06 09:35 | W.PFT ---
Date of service: 01/06/23 Time of Service: 07:59 Pulmonary Function Test Result Indications: Dyspnea on exertion Interpretation Spirometry: There is no airflow limitation. There is no significant bronchodilator response. Lung Volumes: Normal lung volumes Diffusion Capacity: Normal diffusion. Airway Pressure: Normal airways resistance Impression Normal pulmonary function testing Clinical Correlation therefore is recommended.
== END 2023-01-06 04:23 | disposition home or self-care (01) ==
LOC: RT 04:22
PROVIDERS: PCP Family Medicine; Visit Provider Family Medicine
DX: R06.00 Dyspnea, unspecified (principal); Z87.891 Personal history of nicotine dependence; E66.01 Morbid (severe) obesity due to excess calories
CPT/HCPCS: 94060; 94726; 94729

== ENCOUNTER 2023-04-01 04:10 | Outpatient (CLI) | payer MEDICARE, BC, SELFPAY ==
[2023-04-01 07:41] LABS: Abs Immature Grans 0.03 10^3/uL (0.0-0.06); Absolute Basophil Count 0.07 10^3/uL (0.0-0.2); Absolute Eosinophil Count 0.35 10^3/uL (0.0-0.7); Absolute Monocyte Count 0.85 10^3/uL (0.1-0.8); Absolute Neutrophil Count 3.89 10^3/uL (1.2-6.7); Basophils % 0.9; Eosinophils % 4.4; HCT 38.1 % (36.0-46.0); HGB 13.1 g/dL (11.2-15.7); Immature Grans % 0.4; Lymphocytes % 34.2; MCH 32.8 pg (27.0-33.0); MCHC 34.4 % (32.0-36.0); MCV 96 fL (80-95); MPV 9.6 fL (8.0-11.0); Monocytes % 10.8; Neutrophils % 49.3; Platelet Count 206 10^3/uL (130-400); RBC 3.99 10^6/uL (3.93-5.22); RDW-SD 41.7 fL; WBC 7.89 10^3/uL (4.4-10.8)
[2023-04-01 08:01] LABS: Hemoglobin A1C 6.4 % (<5.7)
[2023-04-01 09:04] LABS: ALT 19 U/L (14-59); AST 23 U/L (15-37); Albumin 3.6 g/dL (3.4-5.0); Alkaline Phosphatase 57 U/L (46-116); Anion Gap 7.1 mmol/L (3-11); BUN 14 mg/dL (7-18); Bilirubin, Total 0.5 mg/dL (0.2-1.0); CO2 27.9 mmol/L (21.0-32.0); CREATININE 0.8 mg/dL (0.55-1.02); Calcium 8.6 mg/dL (8.5-10.1); Calculated LDL 75 mg/dL (<100); Chloride 100 mmol/L (98-107); Cholesterol 155 mg/dL (<200); Estimated GFR 75.84 (mL/min/1.73m2); Glucose 107 mg/dL (74-106); HDL Cholesterol 62 mg/dL (40-60); Potassium 4.2 mmol/L (3.5-5.1); Sodium 135 mmol/L (136-145); Triglyceride 90 mg/dL (<150)
[2023-04-01 09:36] LABS: FREE T4 0.87 ng/dL (0.76-1.46)
== END 2023-04-01 04:11 | disposition home or self-care (01) ==
PROVIDERS: PCP Family Medicine; Referring Provider Family Medicine; Visit Provider Family Medicine
DX: I10 Essential (primary) hypertension (principal); E78.5 Hyperlipidemia, unspecified; E03.9 Hypothyroidism, unspecified; R73.01 Impaired fasting glucose; F32.9 Major depressive disorder, single episode, unspecified
CPT/HCPCS: 36415; 80053; 80061; 83036; 84439; 84443; 85025

== ENCOUNTER → 2023-05-14 08:33 | Outpatient (BNVA) | payer MEDICARE, BC, SELFPAY | PROVIDERS: PCP Family Medicine; Referring Provider Family Medicine; Visit Provider Nurse Practitioner Adult Health | DX: G56.01 Carpal tunnel syndrome, right upper limb (principal) | CPT/HCPCS: 95908; 99213 ==

== ENCOUNTER 2023-05-28 13:09 | Outpatient (CLI) | payer MEDICARE, BC, SELFPAY ==
--- NOTE | 2023-05-28 | DI.RAD_ITS ---
Exam(s) XR LUMBAR SPINE COMPLETE EXAM: XR LUMBAR SPINE COMPLETE CLINICAL HISTORY: Radiculopathy lumbar region M54.16. TECHNIQUE: 2D digital imaging was performed of the lumbar spine. Five images were obtained. AP, la teral, right oblique, left oblique and L5-S1 spot views were obtained. COMPARISON: No exams were available for comparison FINDINGS: BONES: No fracture or destructive lesion. There are endplate osteophytes seen particularly at the L2- L3 and L5-S1 level. Degenerative changes of the facets are seen at L4-5 and L5-S1. DISKS: There is disc space narrowing at L2-L3 and L5-S1. ALIGNMENT: Lumbar spinal alignment is within normal limits. No spondylolysis or spondylolisthesis. SOFT TISSUE: Atherosclerosis is present. There is a 9 mm round calcification in the right upper quad rant of the abdomen. This may represent a renal or gallstone. IMPRESSION: [id number] degenerative changes in the lumbar spine. DATA REPOSITORY: RADIATION DOSE DELIVERED:
== END 2023-05-28 13:29 ==
LOC: DI 13:09
PROVIDERS: PCP Family Medicine; Visit Provider Nurse Practitioner Family
DX: M51.16 Intervertebral disc disorders with radiculopathy, lumbar region (principal)
CPT/HCPCS: 72110

== ENCOUNTER → 2023-07-06 08:52 | Outpatient (BNVA) | payer MEDICARE, BC, SELFPAY | PROVIDERS: PCP Family Medicine; Referring Provider Family Medicine; Visit Provider Student in an Organized Health Care Education/Training Program | DX: G56.01 Carpal tunnel syndrome, right upper limb (principal); S63.641S Sprain of metacarpophalangeal joint of right thumb, sequela | CPT/HCPCS: 99213 ==

== ENCOUNTER 2023-08-05 09:07 | Day surgery (SDC) | payer MEDICARE, BC, SELFPAY ==
[2023-08-05 09:25] VITALS: BP 166/77; PULSE 86; RESP 20; TEMP 36.3; O2SAT 96
[2023-08-05] MEDS: Lactated Ringers 1,000 ML 80 ML IV (10:00)
--- NOTE | 2023-08-05 10:03 | ANES.PREOP_ITS ---
General Info Date of Service Date Performed: 08/05/23 Height: 5 ft 4 in Weight: 109.4 kg Body Mass Index (BMI): 41.3 Surgical Procedure: Operation Date: 08/05/23 11:40 Proposed Procedure Side Surgeon p Wrist ECTR Right Ashish Crenshaw MD Meds Allergies and Home Medications Allergies Allergy/AdvReac Type Severity Reaction Status Date / Time No Known Allergies Allergy Verified 08/05/23 09:33 Home Medication Medication Instructions Recorded aspirin 325 mg tablet 1 tab PO DAILY 11/18/12 calcium carbonate 600 mg-vitamin 1 tab PO DAILY 11/18/12 D3 20 mcg (800 unit) tablet (Caltrate with Vitamin D3) acetaminophen 500 mg tablet 1,000 mg (2 x 500 mg) PO TID #90 07/09/21 tabs ibuprofen 600 mg tablet 600 mg PO TID PRN pain #90 tabs 07/09/21 famotidine 40 mg tablet 40 mg PO DAILY #90 tabs 08/29/22 atorvastatin 10 mg tablet 10 mg PO DAILY #90 tabs 10/14/22 sertraline 50 mg tablet 50 mg PO DAILY #90 tabs 10/14/22 fluticasone propionate 50 1 spray intranasal DAILY #16 grams 10/22/22 mcg/actuation nasal spray,suspension lisinopril 10 1 tab PO DAILY #90 tabs 10/22/22 mg-hydrochlorothiazide 12.5 mg tablet metronidazole 0.75 % topical cream 1 applic topical BID PRN rosacea 10/22/22 nystatin 100,000 unit/gram topical 1 applic topical BID PRN yeast #60 12/24/22 powder grams loratadine 10 mg tablet (Claritin) 10 mg PO DAILY #90 tabs 06/17/23 Current Visit Medications: Current Medications Generic Name Dose Route Start Last Admin Trade Name Freq PRN Reason Stop Dose Admin Cefazolin Sodium/Dextrose 2 gm in 50 mls @ 100 mls/hr 08/05/23 09:00 Ancef Duplex IVPB 09/04/23 08:59 PREOP ARISTIDES Ringer's Solution 1,000 mls @ 80 mls/hr 08/05/23 09:00 08/05/23 10:00 IV 09/04/23 23:59 80 mls/hr INFUSION ARISTIDES Administration IV Miscellaneous Supplies 1 each 08/05/23 09:00 Iv Access IV 09/04/23 23:59 DIRECTED ARISTIDES Sodium Chloride 0 ml 08/05/23 09:00 Normal Saline Flush 10 Ml Syr IV 09/04/23 23:59 PRN PRN Sodium Chloride 0 ml 08/05/23 09:00 Normal Saline 10 Ml Vial IJ 09/04/23 23:59 DIRECTED PRN Sterile Water 0 ml 08/05/23 09:00 Water,Injection,Sterile 10 Ml Vial IJ 09/04/23 23:59 DIRECTED PRN PFSH Active Problems Active Problems: Problem Status Onset Code Sprain of ulnar collateral ligament of metacarpophalangeal (MCP) joint of right thumb S63.641A 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 Seborrheic keratoses 10/2021-large lesion distal left leg consistent with seborrheic keratoses measures about 2.5 x 1.5 cm Varicose veins of lower extremity Postmenopausal bleeding (08/29/15) thickened EMS on US; neg/neg pap, EM bx fragment of polyp, otherwise benign inactive EM tissue Hypocalcemia Medical History Comments:: 08/05/23: pt breathless while sitting, pt says it is her normal 08/05/23: [place] the [place] 08[place]23 in [employer]. Surgical History Surgical History Status post lumbar surgery cyst removed 2019 Left carpal tunnel syndrome S/P L ECTR: 07/09/2021 Status post dilation and curettage (09/20/15) Status post endometrial ablation (09/20/15) Status post hysteroscopic polypectomy (09/20/15) Colonoscopy - MAC (02/02/18) Colonoscopy - IV Sedation 2008- normal Tobacco Smoking/Tobacco Use Status: Former Tobacco Use Passive smoking exposure: No Second hand exposure: Yes Alcohol Alcohol Intake: current Alcohol intake frequency: a few times a month Substance Use Substance use: Never Substance use type: does not use Prental History History 3 Para Hx # Term Pregnancies Multiple births 1 Hx # Pregnancies Ectopic pregnancies AB induced Hx Number of Living Children 3 AB spontaneous 1 Vital Signs and Lab Results Vital Signs Most Recent Vital Signs in EMR: Most Recent Vital Signs Temp Pulse Resp BP Pulse Ox 36.3 C L 86 20 166/77 H 96 08/05/23 09:25 08/05/23 09:25 08/05/23 09:25 08/05/23 09:25 08/05/23 09:25 Lab Results Blood Type / Crossmatch: No Data to Display Complete Blood Count: No Data to Display Complete Metabolic Panel: No Data to Display Liver Function Panel: No Data to Display Coagulation Panel: No Data to Display Cardiac Panel: No Data to Display Arterial Blood Gas: No Data to Display Venous Blood Gas: No Data to Display Pancreas Panel: No Data to Display Thyroid Panel: No Data to Display Infectious Disease: No Data to Display Blood Cultures: No Data to Display Toxicology Panel: No Data to Display Imaging and Studies Imaging and Studies Study information below may be from another EMR and interpreted by another provider. Please see original notes in EMR for more complete details. Echocardiogram Summary: 03/21/21: Conclusion Mild concentric left ventricular hypertrophy. Estimated ejection fraction is 60%. There are no segmental wall motion abnormalities Normal right ventricular size and systolic function Both atria are normal in size Sclerotic trileaflet aortic valve with mild stenosis. Calculated aortic valve area is 1.34 cm??. No aortic regurgitation Mild mitral annular calcification, mild mitral regurgitation Trace tricuspid regurgitation with normal estimated right ventricular systolic pressure Pulmonary Function Summary: 01/06/23: Pulmonary Function Test Result Indications: Dyspnea on exertion Interpretation Spirometry: There is no airflow limitation. There is no significant bronchodilator response. Lung Volumes: Normal lung volumes Diffusion Capacity: Normal diffusion. Airway Pressure: Normal airways resistance Impression Normal pulmonary function testing Clinical Correlation therefore is recommended. Anesthesia Assessment and Plan Anesthesia History Personal History: PONV Family History: No Family History of Anesthesia Complications Exercise Tolerance Exercise Tolerance: Metabolic Equivalents>4 Pertinent Negatives Pertinent Negatives: No Symptoms of GERD, No Major Cardiovascular Symptoms or Complaints and No Major Pulmonary Symptoms or Complaints Cardiac & Pulmonary Exam Cardiac Exam: Heart Murmur Present Pulmonary Exam: Clear Bilateral Breath Sounds Implantable Cardiac Device Does patient have a Pacemaker or an ICD?: No Airway Exam Known Difficult Airway: No Mallampati Class: 2 Mouth Opening: Normal (> 3cm) Thyromental Distance: Greater than 3 cm Neck Range of Motion: Full ROM Neck Circumference: Normal Teeth Condition: Generalized Poor Dentition and Loose or Chipped ASA Classification ASA Score: ASA 3 Emergency Case?: No NPO Status NPO Status: NPO Clears >2 hours, Solids >8 hours Anesthesia Plan Resuscitation Status: Full Code Anesthesia Technique: General Anesthesia Airway Planned: Natural Airway Monitors Used: Standard Monitors
[2023-08-05 10:07] VITALS: BMI 41.3
--- NOTE | 2023-08-05 10:11 | HPE_ITS ---
Assessment and Plan Assessment and plan (1) Right carpal tunnel syndrome: Status: Chronic Assessment and plan: Corine is a 77-year-old female with carpal tunnel syndrome on the right side. Once again I reviewed carpal tunnel release with her. I discussed the risk to include bleeding, infection, pain, stiffness, continued symptoms, incomplete release, secondary inflammatory response with scarring around the nerve or tendons, need for repeat procedures. Despite these risk, she elects to proceed. History of Present Illness History of Present Illness Chief Complaint: Right Carpal Tunnel Syndrome Narrative: Corine is a 77-year-old who has carpal tunnel syndrome on the right side. Please see the previous office note for complete detailed history. She is here today for her carpal tunnel on the right side. She has no recent illness. No new sick contacts. No chest pain or shortness of breath. 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 to Citalopram 2016/ tolerance to Paxil #yrs ago Gastroesophageal reflux disease (Chronic) Essential hypertension (Chronic 07/19/13) Medical History Hx of basal cell carcinoma (1989) on scalp History of tobacco abuse quit ; 20 packyr hx. Seborrheic keratoses 10/2021-large lesion distal left leg consistent with seborrheic keratoses measures about 2.5 x 1.5 cm Varicose veins of lower extremity Postmenopausal bleeding (08/29/15) thickened EMS on US; neg/neg pap, EM bx fragment of polyp, otherwise benign inactive EM tissue Hypocalcemia Surgical History Status post lumbar surgery cyst removed 2019 Left carpal tunnel syndrome S/P L ECTR: 07/09/2021 Status post dilation and curettage (09/20/15) Status post endometrial ablation (09/20/15) Status post hysteroscopic polypectomy (09/20/15) Colonoscopy - MAC (02/02/18) Colonoscopy - IV Sedation 2008- normal Family History Mother , at 57 of [place] Diabetes Heart disease Myocardial infarction Father Heart disease CHF (congestive heart failure) Sister Diabetes Heart disease Brother No problems noted. Brother Protein S deficiency Daughter No problems noted. Daughter No problems noted. Daughter No problems noted. Maternal Grandfather , in his 60s [place] Heart disease Myocardial infarction Maternal Grandmother , in 60s of [place] Heart disease Myocardial infarction Paternal Grandfather , 70s No problems noted. Paternal Grandmother , in her 70s of breast cancer Breast cancer Social History Smoking/Tobacco Use Status: Former Tobacco Use tobacco type: cigarettes Quit Date: 08/10/01 Tobacco: How many years used: 30 Second Hand Exposure: Yes Smoking risk assessment performed?: Yes Alcohol Intake: current Alcohol Intake frequency: a few times a month Drug use: Never Substance use type: does not use Caregiver/Support person: No Household members: none Housing: house Number of Children: 3 number of grandchildren: 9 Communication Needs: None Education Level: college Do you need help understanding health information?: Rarely 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 Pets and animals: No Sexually active: No Do you think of yourself as: straight/heterosexual Current gender identity: female What is your relationship status?: How often do you talk on the phone with friends or family?: three or more times per week How often do you get together with friends or relatives?: three or more times per week How often do you attend sikhism or latter-day services?: 1-3 times per year Do you belong to any clubs or organized social groups?: no Panel score (0-1 are the most socially isolated patients): 1 What type of physical activity do you participate in: walking Frequency: 3-4 times per week Lorri/Yazidism: Confucianism Special lorri needs: No Seatbelt use: always Helmet use: No Drive intox or ride w/intox auto transport driver: No Do you feel safe at home: Yes Additional Social history: Enjoys travelling with her 3 daughters. History History 3 Para Hx # Term Pregnancies Multiple births 1 Hx # Pregnancies Ectopic pregnancies AB induced Hx Number of Living Children 3 AB spontaneous 1 Meds Allergies and Home Medications Allergies Allergy/AdvReac Type Severity Reaction Status Date / Time No Known Allergies Allergy Verified 08/05/23 09:33 Home Medications Medication Instructions Recorded Confirmed Type aspirin 325 mg tablet 1 tab PO DAILY 11/18/12 08/05/23 History calcium carbonate 600 mg-vitamin 1 tab PO DAILY 11/18/12 08/05/23 History D3 20 mcg (800 unit) tablet (Caltrate with Vitamin D3) acetaminophen 500 mg tablet 1,000 mg (2 x 500 mg) PO TID #90 07/09/21 08/05/23 Rx tabs ibuprofen 600 mg tablet 600 mg PO TID PRN pain #90 tabs 07/09/21 08/05/23 Rx famotidine 40 mg tablet 40 mg PO DAILY #90 tabs 08/29/22 08/05/23 Rx atorvastatin 10 mg tablet 10 mg PO DAILY #90 tabs 10/14/22 08/05/23 Rx sertraline 50 mg tablet 50 mg PO DAILY #90 tabs 10/14/22 08/05/23 Rx fluticasone propionate 50 1 spray intranasal DAILY #16 grams 10/22/22 08/05/23 Rx mcg/actuation nasal spray,suspension lisinopril 10 1 tab PO DAILY #90 tabs 10/22/22 08/05/23 Rx mg-hydrochlorothiazide 12.5 mg tablet metronidazole 0.75 % topical cream 1 applic topical BID PRN rosacea 10/22/22 08/05/23 History nystatin 100,000 unit/gram topical 1 applic topical BID PRN yeast #60 12/24/22 08/05/23 Rx powder grams loratadine 10 mg tablet (Claritin) 10 mg PO DAILY #90 tabs 06/17/23 08/05/23 Rx Exam Resp Auscultation: clear to auscultation bilaterally Cardio Rate: regular rate Rhythm: regular rhythm Results Last Vital Signs Temp 36.3 C L 12/27/23 09:25 Pulse 86 08/05/23 09:25 Resp 20 08/05/23 09:25 BP 166/77 H 08/05/23 09:25 Pulse Ox 96 08/05/23 09:25
--- NOTE | 2023-08-05 10:35 | PDOC.DSDIS_ITS ---
Date of service: 08/05/23 Time of Service: 10:37 Discharge Plan Disposition Patient Disposition: Home Condition: Good Discharge Details Reason For Visit: Right carpal tunnel syndrome Attending Provider: Ashish Crenshaw Primary Care Provider: Kandace Summers Home Meds and New Rx's Prescriptions: New hydrocodone-acetaminophen 5-325 mg tablet 1 tab PO Q6H PRN (Reason: severe pain) Qty: 4 0RF Rx Instructions: Take one tablet up to every 6 hours as needed for severe postoperative pain Continued nystatin 100,000 unit/gram powder 1 applic topical BID PRN (Reason: yeast) Qty: 60 3RF loratadine [Claritin] 10 mg tablet 10 mg PO DAILY Qty: 90 3RF metronidazole 0.75 % cream 1 applic topical BID PRN (Reason: rosacea) Rx Instructions: local application on cheeks, nose, forehead twice a day lisinopril-hydrochlorothiazide 10-12.5 mg tablet 1 tab PO DAILY Qty: 90 3RF fluticasone propionate 50 mcg/actuation spray,suspension 1 spray intranasal DAILY Qty: 16 4RF Rx Instructions: administer into each nostril aspirin 325 MG tablet 1 tab PO DAILY calcium carbonate-vitamin D3 [Caltrate with Vitamin D3] 1 EACH tablet 1 tab PO DAILY famotidine 40 mg tablet 40 mg PO DAILY Qty: 90 3RF sertraline 50 mg tablet 50 mg PO DAILY Qty: 90 3RF Rx Instructions: take one tablet daily atorvastatin 10 mg tablet 10 mg PO DAILY Qty: 90 3RF acetaminophen 500 mg tablet 1,000 mg PO TID Qty: 90 0RF ibuprofen 600 mg tablet 600 mg PO TID PRN (Reason: pain) Qty: 90 0RF Discharge Instructions Stand Alone Forms: Anesthesia Discharge Inst[facility] [place] Tunnel Release Referrals: Ashish Crenshaw MD [ [facility] STAFF PHYSICIAN] - 09/17/23 9:30 am Activity:: Elevate Remove Dressings/Wound Care:: 48 hours Shower/Bathe:: 48 hours Diet:: As Tolerated Discharge Orders Discharge Orders: Discharge Order (Routine); Ordered 08/05/23 Ordered By: Xochitl James DS: Diagnosis Discharge Diagnosis (1) Right carpal tunnel syndrome: Status: Chronic
[2023-08-05] MEDS: ceFAZolin 2 GM/50 ML BAG IVPB (10:45)
[2023-08-05] MEDS: Lidocaine 1% Multi-Dose W/EPI 1/100,000 50 ML VIAL (10:53)
[2023-08-05 11:07] VITALS: BP 124/65; PULSE 72; RESP 16; TEMP 36.3; O2SAT 95
[2023-08-05 11:38] VITALS: BP 141/70; PULSE 74; RESP 16; TEMP 36.2; O2SAT 94
--- NOTE | 2023-08-05 11:38 | W.ANESPOSTOP ---
Postoperative Evaluation Date, Time and Location Date Performed: 08/05/23 Time Performed: 11:07 Patient Location: Day Surgery Unit Vital Signs Most Recent Imported Vital Signs: Most Recent Vital Signs Temp Pulse Resp BP Pulse Ox 36.3 C L 72 16 124/65 95 08/05/23 11:07 08/05/23 11:07 08/05/23 11:07 08/05/23 11:07 08/05/23 11:07 Pain Score Most Recent Pain Score: Most Recent Pain Score Pain Level 0 08/05/23 11:07 Assessment Mental Status: Awake (Alert & Oriented to Patient Baseline) Airway and Respiratory Function: Patent airway with normal (patient baseline) respiratory exam Cardiovascular Function: Hemodynamically Stable Hydration Status: Adequately Hydrated Nausea & Vomiting: No Nausea or Vomiting Pain: Pt. Denies Any Pain Peripheral Nerve Block: Patient did not receive a nerve block
--- NOTE | 2023-08-05 14:54 | ROE_ITS ---
Date of service: 08/05/23 Time of Service: 10:45 Operative Note Operative Note DATE OF PROCEDURE: 08/05/23 PRE-OP DIAGNOSIS: Right Carpal Tunnel Syndrome POST-OP DIAGNOSIS: same PROCEDURE: Right Endoscopic Carpal Tunnel Release SURGEON: Ashish Crenshaw ANESTHESIA TYPE: General:No Airway Refer to Anesthesia Record ESTIMATED BLOOD LOSS: 0 PATHOLOGY: none sent TOURNIQUET TIME: 6 COMPLICATIONS: None Patient was transported to: same day Patient's condition: stable Indications: I have seen Corine in clinic for symptoms of carpal tunnel syndrome. The numbness, tingling, and pain limited function. Clinical exam findings [with nerve conduction tests ]confirmed the diagnosis of carpal tunnel syndrome. Nonoperative measures such as bracing, time, activity modifications had been tried but disability and pain persisted. I discussed carpal tunnel release with the patient. I reviewed the risks of the procedure to include, but not limited to, bleeding, infection, pain, stiffness, incomplete release, damage to nerves or vessels, persistent numbness, recurrence. Despite these risks, the patient elected to proceed. Findings: There was tightened carpal tunnel. This was dilated and released successfully with the endoscopic with increased space within the tunnel. The antebrachial fascia was released proximally freeing the median nerve at the wrist. Procedure Description: Corine was greeted in the preoperative holding area where the correct side was identified and marked. The consent was reviewed with the patient and signed. The history and physical was updated. All questions were answered. She was taken back to the operating room. The patient was placed into the supine position on the operating room table with the right arm on an arm board. A nonsterile tourniquet was placed high onto the arm. All bony prominences were well padded. Prophylactic antibiotics in the form of Cefazolin were administered. The right arm was then prepped with Chloraprep and draped in a standard fashion with stockinette and extremity drape. A timeout to confirm correct identity, side and site, procedure, allergies, anesthesia, and medical concerns was performed. The surgical site was marked in the volar wrist creases in line with the radial border of the fourth ray. This area was anesthetized with approximately 6cc of 1% Lidocaine. The limb was then exsanguinated with an Esmarch. The skin was incised with a 15 blade, approximately 1cm. The skin only was cut and the deeper tissue was dissected bluntly with a tenotomy scissor, avoiding passing nerve and venous structures. The fascia was penetrated and opened bluntly. A two-prong skin hook was placed under this proximal fascial edge. A series of hamate finders were used to identify and dilate the carpal tunnel. Synovial elevator was used to free synovial attachments to the underside of the transverse carpal ligament. My thumb was kept in the palm to noel the distal extent of the carpal tunnel and correctly position the hand. The [employer] end oscope was inserted without difficulty and without resistance. Excellent visualization showed horizontally running fibers of the transverse carpal ligament (TCL). The distal extent of the TCL was visualized and the end of the scope palpated with the thumb. The blade was elevated and withdrawn from distal to proximal. The TCL was split into two flaps. The endoscope was reinserted to confirm complete release and any remnant ligament was incised. The scope was withdrawn and the proximal aspect of the carpal tunnel was grossly inspected and appeared release with the median nerve visible. The antebrachial fascia at the level of the wrist was then freed from the overlying skin and then the underlying median nerve with blunt dissection. This was transected longitudinally for about 3cm proximal to the wrist incision. The wound was then irrigated with easy flow of irrigant distally and proximally. The incision was closed with a single 4-0 Nylon suture. The wound was dressed with Xeroform, Gauze, Kerlix and Rufino. The tourniquet was deflated with the initial dressing and held with some pressure. Blood flow returned easily to all digits with capillary refill less than 2 seconds. The patient tolerated the procedure well and was returned to the Same Day Surgery area in a stable condition suffering no known complication.
== END 2023-08-05 12:00 | disposition home or self-care (01) ==
PROVIDERS: PCP Family Medicine; Visit Provider Student in an Organized Health Care Education/Training Program
PROC: 01N54ZZ Release Median Nerve, Percutaneous Endoscopic Approach (ICD-10-PCS; CPT 29848; principal; 2023-08-05 11:30)
DX: G56.01 Carpal tunnel syndrome, right upper limb (principal)
CPT/HCPCS: 29848; J0690; J1100; J1885; J2001; J2405; J2704; J3010

== ENCOUNTER → 2023-08-12 03:38 | Outpatient (CLI) | payer MEDICARE, BC, SELFPAY ==
--- NOTE | 2023-08-12 06:45 | DI.US_ITS ---
APPROVED REPORT EXAM: Comprehensive 2D, Doppler, and color-flow Echocardiogram Patient Location: Out-Patient Union Representative: Alphonso Neri RDCS (AE) Indications: aortic stenosis Other Information Study Quality: Good. Technically limited study due to body habitus. Conclusion 1.Mildly dilated left atrium,other chambers normal 2.Mild LVH with normal systolic function,EF 65%.Grade 1 diastolic dysfunction. 3.Mild aortic sclerosis with mild stenosis,trace AI.Other valves anatomically normal.Mild MR. 4.No intracardiac shunt. 5.No pericardial effusion. Wall motion Left Ventricle The left ventricle is normal size. The left ventricular systolic function is normal. The left ventric ular ejection fraction is within the normal range. There is normal left ventricular wall thickness. T here is normal LV segmental wall motion. There is no ventricular septal defect visualized. LVEF is 56 %. Right Ventricle The right ventricle is normal size. The right ventricular systolic function is normal. Unable to asse ss PA pressure. Atria The left atrium size is normal. The right atrium size is normal. The interatrial septum is intact wit h no evidence for an atrial septal defect. Aortic Valve The Aortic valve is sclerotic. Mild aortic stenosis. Peak aortic valve gradient is 21.16 mmHg. Highes t mean aortic valve gradient is 13.58 mmHg. Calculated TARA by the continuity equation is 1.5 cm2. Tra ce aortic regurgitation. Mitral Valve The mitral valve is normal in structure. No evidence of mitral valve stenosis. Mild mitral regurgitat ion. Tricuspid Valve The tricuspid valve is normal in structure. There is no tricuspid valve regurgitation noted. Unable t o assess PA pressure. Pulmonic Valve Pulmonic valve is not well visualized. There is no pulmonic valvular regurgitation. Great Vessels The aortic root is normal in size. Ascending aorta is not well visualized. Aortic arch is not well vi sualized. IVC is normal in size and collapses >50% with inspiration. Pericardium There is no pericardial effusion. 2D Dimensions IVSD d PLAX 0.93 cm F: 0.6-1.0 Ao Root d 3.00 cm F: 2.7 - 3.3 LVPW d PLAX 0.86 cm F: 0.6 - 1.0 LVID d PLAX 4.51 cm F: 3.8 - 5.2 LVDs 1.98 cm F: 2.2 - 3.5 LV EF Teichholz 86.7 % FS 56.17 % LV EDV (Teich) 93.1 mL LV ESV (Teich) 12.4 mL Stroke Vol Index (Teich) 38.09 Auto EF LV EDV A4C 98.4 mL LV EDV A2C 87.2 mL LV EDV BP 93.5 mL LV ESV A4C 44.4 mL LV ESV A2C 37.7 mL LV ESV BP 40.5 mL LVEF(%) A4C 54.9 % LVEF(%) A2C 56.8 % LVEF(%) BP 56.7 % LV SV A4C 54.1 ml LV SV A2C 49.5 ml LV SV BP 53.0 ml LV CO A4C 3.6 L/min LV CO A2C 3.1 L/min LV CO BP 3.3 L/min HR A4C 66.65 BPM HR A2C 61.75 BPM LV EDV Index (BP) LA Volume LA Length A4C 6.1 cm LA Length A2C 5.1 cm LA Area A4C s 11.39 cm2 LA Area A2C s 13.31 cm2 LA Vol A4C A-L 17.97 mL LA Vol A2C A-L 29.70 mL LA Vol Biplane A-L 25.4 mL LA Vol/BSA A4C A-L LA Vol/BSA A2C A-L LA Vol/BSA BP A-L 12.0 mL/m2 LA Vol A4C MOD 17.3 mL LA Vol A2C MOD 28.8 mL LA Vol BP MOD 24.5 mL RA Volume RA Area A4C 8.2 cm2 RA ESV A4C (A-L) 14.6mL RA Vol/BSA A4C A-L RA Length A4C 3.9 cm RA ESV A4C (MOD) 14.6mL LV Diastology MV E' medial 0.061 (>0.07 m/s) MV E Vmax 1.09 (0.4-1.3 m/s) MV E/E' MED 17.89 (<14) MV A Vmax 1.15 (0.4-1.3 m/s) MV E' lateral 0.079 (>0.1 m/s) E/A Ratio 0.9 MV E/E' LAT 13.73 (<14) MV E' Average 0.070 m/s MV E/E'(average) 15.54 Aortic Valve AoV Vmax 2.30 m/s LVOT Vmax 1.37 m/s AoV Peak Grad 21.2 mmHg LVOT Peak Grad 7.5 mmHg AoV Area (Vmax) 1.71 cm2 LVOT VTI 0.341 m AoV VTI 0.647 m LVOT Mean Grad 3.4 mmHg AoV Mean Nazario. 1.77 m/s LVOT SV 97.74 mL AoV Mean Grad 13.6 mmHg LVOT Diam s 1.90 cm AoV Area (VTI) 1.51 cm2 Velocity Ratio 0.60 Mitral Valve MV DT 202 (160-240 msec)
== END ==
PROVIDERS: PCP Family Medicine; Visit Provider Internal Medicine Cardiovascular Disease
DX: I35.0 Nonrheumatic aortic (valve) stenosis (principal)
CPT/HCPCS: 93306

== ENCOUNTER → 2023-08-17 09:30 | Outpatient (BNVA) | payer MEDICARE, BC, SELFPAY | PROVIDERS: PCP Family Medicine; Referring Provider Family Medicine | DX: Z47.89 Encounter for other orthopedic aftercare (principal); G56.01 Carpal tunnel syndrome, right upper limb ==

== ENCOUNTER 2023-08-24 08:14 | Outpatient (CLI) | payer MEDICARE, BC, SELFPAY ==
--- NOTE | 2023-08-24 08:00 | RT.EKG_ITS ---
APPROVED REPORT Exam: Resting ECG Reason for Exam: , HTN Patient Location: O HR:91 bpm ECG Measurements Heart Rate 91 AXIS CA 198 P 50 QRSd 88 QRS -17 QT 355 T 76 QTc 437 Conclusion Sinus rhythm...normal P axis, V-rate 50- 99 Abnormal R-wave progression, early transition...QRS area>0 in V2 LVH by voltage...R >1.10 in aVL I have reviewed and interpreted ECG and agree with software generated interpretation.
== END 2023-08-24 08:15 | disposition home or self-care (01) ==
LOC: DI.CARD 08:17
PROVIDERS: PCP Family Medicine; Visit Provider Internal Medicine Interventional Cardiology
DX: I10 Essential (primary) hypertension (principal); I35.0 Nonrheumatic aortic (valve) stenosis
CPT/HCPCS: 93010

== ENCOUNTER → 2023-08-24 09:46 | Outpatient (BNVA) | payer MEDICARE, BC, SELFPAY | PROVIDERS: PCP Family Medicine; Visit Provider Internal Medicine Interventional Cardiology | DX: I35.0 Nonrheumatic aortic (valve) stenosis (principal); I10 Essential (primary) hypertension; R06.09 Other forms of dyspnea; E78.5 Hyperlipidemia, unspecified; E03.9 Hypothyroidism, unspecified; R94.6 Abnormal results of thyroid function studies | CPT/HCPCS: 93005; 99213 ==

== ENCOUNTER → 2023-09-08 00:35 | Outpatient (CLI) | payer MEDICARE, BC, SELFPAY ==
--- NOTE | 2023-09-08 06:34 | DI.NM_ITS ---
APPROVED REPORT Exam: Exercise Treadmill Patient Location: Out-Patient Room/Bed: Stress Nurse: Jerry Nascimento RN Ordering Provider:SILVIA BERNAL, Contact Number: BMI: 41.19 Baseline Rhythm: Sinus Rhythm Indications: Dyspnea on exertion. Medical History Medical History: Hypocalcemia, Hypothyroidism, HLD, Aortic Stenoisis, GERD, Morbid Obesity, HTN. Cardiac Medications: ASA, atorvastatin, Pepcid, Lisinopril, HCTZ. , Allergies: No known drug allergies Cardiac Risk Factors: Obesity, HTN Pretest Chest Pain Characteristics: No chest pain Exercise History: Physically active Lung Sounds: Clear to auscultation Heart Sounds: Murmur, Regular Stress Test Details Test: Exercise stress testing was performed using a Charlie protocol. Rest Isotope: Tc-99m Sestamibi. Dose: 12.0 Date: 09/08/2023 Injection Time: 0900 Stress Isotope: Tc-99m Sestamibi. Dose: 37.0 Date: 09/08/2023 Injection Time: 1020 HR Resting HR Supine: 70 bpm Max Heart Rate (APMHR): 143.822079 bpm Resting HR Standin bpm Target HR (85% APMHR): 121.330005 bpm Max HR Achieved: 135 bpm % of APMHR: 94.41 Recovery HR: 77 bpm HR response to stress: Normal HR response to stress BP Resting BP Supine: 126/68 mmHg Resting BP Standin/78 mmHg Max BP: 162/80 mmHg Recovery BP: 136/76 mmHg BP response to stress: Normal blood pressure response to stress. ECG Resting ECG: Sinus Rhythm Ectopy: none Stress ECG: Sinus Tachycardia ST Change: No significant ST segment changes noted Arrhythmia: None Recovery ECG: Sinus Rhythm Recovery ST Change: No significant ST segment changes noted Recovery Arrhythmia: None Clinical Reason for Termination: Fatigue, Dyspnea, Target HR Achieved Stress Symptoms: Dyspnea Exercise duration: 3 min30 sec Highest Stage Reached: Stage 2: 2.5 mph at 12% grade. Exercise capacity: 5.23 METs Angina Score: None Conklin Treadmill Score: 3.8 Rate Pressure Product: 09230 Stress ECG Conclusion 1. Normal clinical,BP ,HR and ECG responses 2. Nuclear findings reported separately. Conklin Treadmill Score is 3.8 which is Moderate risk. Stress Test Summary STAGE Time (mins) Speed (mph) Grade (%) HR BP SpO2 SYMPTOMS METS Supine 70 126/68 93 none Standing 78 128/78 93 none 1 3 1.7 10 126 152/70 95 SOB 4.5 1 min recovery 88 162/80 95 SOB 3 min recovery 77 136/76 95 none MPI Conclusion Normal myocardial perfusion, no ischemia or infarct The LV systolic function is normal,EF 86% Radiologist Interpretation Radiologist Interpretation by: Elvis Calloway MD Interpretation Date/Time: 09/09/2023 07:40:33
== END ==
PROVIDERS: PCP Family Medicine; Visit Provider Internal Medicine Interventional Cardiology
DX: R06.09 Other forms of dyspnea (principal)
CPT/HCPCS: 78452; 93016; 93018; 93017

== ENCOUNTER 2023-09-16 14:26 | Outpatient (REF) | payer MEDICARE, BC, SELFPAY ==
--- NOTE | 2023-09-16 14:00 | SKI_PTH ---
PATIENT: Corine Root LOC: N U#:[id number] AGE/SX: 77/F ROOM: RE09/16/[address]: Kandace Summers : 1945 BED: DIS: 09/16/2023 SPEC #: [id number] RECD: 09/17/23 12:31 STATUS: PASQUALE VELASCO #: [id number] VENANCIO: 09/16/23 14:[address]: Kandace Summers DEPT: Surgical Specimen RECD BY: Natalie Bassett Tissues: 1 - SKIN BIOPSY(SHAVE/PUNCH) Procedures: SKIN LEVEL 4 SPECIAL STAIN 1 Comments: [id number]
== END 2023-09-16 14:27 | disposition home or self-care (01) ==
LOC: LBN 14:26
PROVIDERS: PCP Family Medicine; Visit Provider Family Medicine
DX: L43.8 Other lichen planus (principal)
CPT/HCPCS: 88305; 88312

== ENCOUNTER → 2023-10-26 09:44 | Outpatient (BNVA) | payer MEDICARE, BC, SELFPAY | PROVIDERS: PCP Family Medicine; Visit Provider Internal Medicine Cardiovascular Disease | DX: R60.0 Localized edema (principal); I35.0 Nonrheumatic aortic (valve) stenosis | CPT/HCPCS: 99213 ==

== ENCOUNTER 2024-04-05 03:03 | Outpatient (CLI) | payer MEDICARE, BC, SELFPAY ==
[2024-04-05 07:46] LABS: ALT 21 U/L (14-59); AST 21 U/L (15-37); Albumin 3.5 g/dL (3.4-5.0); Alkaline Phosphatase 59 U/L (46-116); Anion Gap 9.5 mmol/L (3-11); BUN 21 mg/dL (7-18); Bilirubin, Total 0.42 mg/dL (0.2-1.0); CO2 26.5 mmol/L (21.0-32.0); CREATININE 1.1 mg/dL (0.55-1.02); Calcium 8.3 mg/dL (8.5-10.1); Chloride 102 mmol/L (98-107); Estimated GFR 51.43 (mL/min/1.73m2); Glucose 115 mg/dL (74-106); Magnesium 2.1 mg/dL (1.8-2.4); Potassium 4.1 mmol/L (3.5-5.1); Sodium 138 mmol/L (136-145); TSH (W/Ref FT4) 4.44 uIU/mL (0.36-3.74); Total Protein 7.2 g/dL (6.4-8.2)
[2024-04-05 08:04] LABS: FREE T4 1.05 ng/dL (0.76-1.46)
[2024-04-05 10:18] LABS: Hemoglobin A1C 6.2 % (<5.7)
== END 2024-04-05 03:04 | disposition home or self-care (01) ==
LOC: LBO 03:03
PROVIDERS: PCP Family Medicine; Visit Provider Family Medicine
DX: I10 Essential (primary) hypertension; E03.9 Hypothyroidism, unspecified; R94.6 Abnormal results of thyroid function studies; R73.01 Impaired fasting glucose
CPT/HCPCS: 36415; 80053; 83036; 83735; 84439; 84443

== ENCOUNTER 2024-07-18 16:23 | Outpatient (REF) | payer MEDICARE, BC, SELFPAY | END 2024-07-18 16:24 | disposition home or self-care (01) | LOC: LBN 16:23 | PROVIDERS: PCP Family Medicine; Visit Provider Nurse Practitioner Family | DX: N39.0 Urinary tract infection, site not specified (principal); R82.89 Other abnormal findings on cytological and histological examination of urine | CPT/HCPCS: 87077; 87086; 87186 ==

== ENCOUNTER 2024-10-10 02:18 | Outpatient (CLI) | payer MEDICARE, BC, SELFPAY ==
[2024-10-10 08:55] LABS: Anion Gap 10.1 mmol/L (3-11); BUN 11 mg/dL (7-18); CO2 26.9 mmol/L (21.0-32.0); CREATININE 0.9 mg/dL (0.55-1.02); Chloride 103 mmol/L (98-107); Estimated GFR 65.44 (mL/min/1.73m2); Glucose 132 mg/dL (74-106); Potassium 4.1 mmol/L (3.5-5.1); Sodium 140 mmol/L (136-145)
== END 2024-10-10 02:19 | disposition home or self-care (01) ==
PROVIDERS: PCP Family Medicine; Visit Provider Family Medicine
DX: I10 Essential (primary) hypertension (principal)
CPT/HCPCS: 36415; 80048

== ENCOUNTER → 2024-10-24 09:47 | Outpatient (BNVA) | payer MEDICARE, BC, SELFPAY | PROVIDERS: PCP Family Medicine; Visit Provider Registered Nurse | DX: I35.0 Nonrheumatic aortic (valve) stenosis (principal); I10 Essential (primary) hypertension | CPT/HCPCS: 99214 ==

== ENCOUNTER 2025-04-04 03:13 | Outpatient (CLI) | payer MEDICARE, BC, SELFPAY ==
[2025-04-04 10:33] LABS: Anion Gap 7.1 mmol/L (3-11); BUN 15 mg/dL (7-18); CO2 27.9 mmol/L (21.0-32.0); Calcium 9.0 mg/dL (8.5-10.1); Chloride 98 mmol/L (98-107); Estimated GFR 74.90 (mL/min/1.73m2); Glucose 132 mg/dL (74-106); Potassium 4.3 mmol/L (3.5-5.1); Sodium 133 mmol/L (136-145); TSH (W/Ref FT4) 3.60 uIU/mL (0.36-3.74)
[2025-04-04 11:11] LABS: Hemoglobin A1C 6.3 % (<5.7)
== END 2025-04-04 03:14 | disposition home or self-care (01) ==
LOC: LBO 03:13
PROVIDERS: PCP Family Medicine; Visit Provider Family Medicine
DX: R73.01 Impaired fasting glucose (principal); E03.9 Hypothyroidism, unspecified; R94.6 Abnormal results of thyroid function studies; I10 Essential (primary) hypertension
CPT/HCPCS: 36415; 80048; 83036; 84443

== ENCOUNTER 2025-05-04 04:20 | Outpatient (CLI) | payer MEDICARE, BC, SELFPAY ==
--- NOTE | 2025-05-11 10:24 | W.NUTRFU ---
Date of service: 05/04/25 Time of Service: 11:30 Nutrition Note NOTE: MEt with Alexey for glucose mgt and weight loss. A1C in prediabetes reange last march. not much activity and will work on this. reviewed typical diet - low in fiber and can be high in refined starch with choices like 6'' sub from [employer] accounting for 4 servings of low fiber CHO easily. educated that at her age and height she does not need 4 servings of CHO at a meal and the choices she makes should be higher in fiber - aim for 3 g per serving in grain products like breads and cereals etc.. Encouraged more fiber by including more choices with beans and lentils. - tends to have frzn dinners - suggested low sodium lentil/de león based soups for more fiber and try bagged salads etc... reviewed goal for less than 30g added sugar per day and how to read labels for this. alexey took some education handouts and will call if desiring follow up Time Spent in Nutritional Counseling and Treatment: 25 min
== END 2025-05-04 04:21 | disposition home or self-care (01) ==
LOC: DS 04:20
PROVIDERS: PCP Family Medicine; Visit Provider Dietitian, Registered
DX: E11.69 Type 2 diabetes mellitus with other specified complication (principal)
CPT/HCPCS: 00123; 97802